=== PATIENT | female | born 1985 | race African-American/Black ===

== ENCOUNTER 2016-09-28 07:04 | Emergency (ER) | payer OTHER ==
[~2016-09-28] VITALS: Ht 172.7 cm; Wt 54.4 kg
[~2016-09-28 07:04] MED LIST: MACROBID 100 M100 M1 PO; MOBIC15 MG PO; NAPROSYN500 MG PO; NOHOMEMEDICATIONS; VEETIDS 250MG250 M1 PO
[2016-09-28 07:05] VITALS: BP 114/72
[2016-09-28 07:28] LABS: URINE BLOOD NEGATIVE (Negative); URINE COLOR YELLOW; URINE GLUCOSE-RANDOM* NEGATIVE (Negative); URINE KETONES TRACE (Negative); URINE NITRITE NEGATIVE (Negative); URINE PROTEIN (DIPSTICK) TRACE (Negative); URINE SPECIFIC GRAVITY 1.025 (1.003-1.035)
[2016-09-28 07:30] LABS: ICTOTEST (BILI CONFIRMATORY) Negative (Negative); URINE BILIRUBIN NEGATIVE (Negative)
[2016-09-28] MEDS ORDERED: AZITHROMYCIN250 MG PO (07:57)
== END 2016-09-28 08:13 | disposition home or self-care (01) ==
LOC: ER 07:04
PROVIDERS: Emergency Medicine
DX: S00.411A Abrasion of right ear, initial encounter (principal); Z98.890 Other specified postprocedural states; F17.210 Nicotine dependence, cigarettes, uncomplicated; X58.XXXA Exposure to other specified factors, initial encounter; Y93.89 Activity, other specified; Y92.89 Other specified places as the place of occurrence of the external cause; Y99.8 Other external cause status